=== PATIENT | female | born 1995 | race American Indian/Alaskan Native ===

== ENCOUNTER 2019-07-07 18:17 | Emergency (ER) | payer SELFPAY ==
--- NOTE | 2019-07-07 20:42 | Event Note ---
ED Screening Note Date of service: 07/07/19 Time: 20:40 ED Screening Note: Pt complains of SOB and CP x 3 days states has had a cough x 3 weeks +sweats and chills +smoker denies asthma hx This initial assessment/diagnostic orders/clinical plan/treatment(s) is/are subject to change based on patients health status, clinical progression and re- assessment by fellow clinical providers in the ED. Further treatment and workup at subsequent clinical providers discretion. Patient/guardian urged not to elope from the ED as their condition may be serious if not clinically assessed and managed. Initial orders include: labs CXR
[2019-07-07 21:24] LABS: Hematocrit 42.8 % (30.3-42.9); Hemoglobin 13.6 gm/dl (10.1-14.3); Mean Corpuscular HGB Conc 32 % (30-34); Mean Corpuscular Volume 81 fl (79-97); Platelet Count 334 K/mm3 (140-440); Red Blood Count 5.26 M/mm3 (3.65-5.03)
[2019-07-07 21:37] LABS: BUN/Creatinine Ratio 20; Blood Urea Nitrogen 16 mg/dL (7-17); Calcium 9.5 mg/dL (8.4-10.2); Hemolysis Index 5
[2019-07-07 22:07] VITALS: BP 184/95
--- NOTE | 2019-07-07 22:44 | XRay Report ---
CHEST 2 VIEWS INDICATION / CLINICAL INFORMATION: abnormal breath sounds, SOB, CP. COMPARISON: None available. FINDINGS: SUPPORT DEVICES: None. HEART / MEDIASTINUM: No significant abnormality. LUNGS / PLEURA: No significant pulmonary or pleural abnormality. No pneumothorax. ADDITIONAL FINDINGS: No significant additional findings. IMPRESSION: 1. No significant abnormality Signer Name: Sabrina Stover MD Signed: 07/07/2019 10:39 PM Workstation Name: [id number]
[2019-07-07] MEDS ORDERED: IPRATROPIUM/ALBUTEROL SULFATE 3 ML AMPUL.NEB IH ONE (22:58)
[2019-07-07] MEDS ORDERED: methylPREDNISolone Sod Succinate 125 MG/2 ML INJ IV ONE (22:58)
[2019-07-07] MEDS ORDERED: SODIUM CHLORIDE 0.9% 1000 ML 1,000 ML IV ONE (23:02)
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
[2019-07-07] MEDS ORDERED: guaiFENesin 100 MG/5 ML ORAL LIQD PO ONE (23:04)
== END 2019-07-08 01:00 | disposition home or self-care (01) ==
LOC: ED 18:17
DX: J20.9 Acute bronchitis, unspecified (principal); F17.200 Nicotine dependence, unspecified, uncomplicated; Z98.890 Other specified postprocedural states
CPT/HCPCS: 36415; 71046; 80048; 84484; 84703; 85027; 94640; 96361; 96374; 99283; J2930; J7030